=== PATIENT | female | born 1965 | race Caucasian/White ===

== ENCOUNTER 2025-03-18 10:17 | Outpatient (CLI) | payer OTHER | END 2025-03-18 10:18 | disposition home or self-care (01) | LOC: SCSRAD 10:17 | PROVIDERS: ATTEND Physician Assistant | DX: R07.89 Other chest pain (principal) | CPT/HCPCS: 36415; 71046; 80053; 80061; 81001; 82150; 83690; 84439; 84443; 84702; 85025; 86376; 86800 ==